=== PATIENT | male | born 2000 | race African-American/Black ===

== ENCOUNTER 2022-08-25 09:59 | Emergency (ER) | payer OTHER, SELFPAY ==
[2022-08-25 10:02] VITALS: BP 143/70; PULSE 78; RESP 16; TEMP 36.6; O2SAT 98; BMI 25.2
--- NOTE | 2022-08-25 10:20 | ED.VIS.GI ---
HPI HPI - GI History of Present Illness Chief Complaint: Abd Pain Informant: patient and friend Abdominal Pain/Flank Pain Onset: Days Context: Gradual Onset Timing: Intermittent Quality: Cramping Location: Diffuse Current Severity: Gone Maximum Severity: Mild Worsened by: Nothing Relieved by: Nothing Nausea/Vomiting/Emesis GI Symptom: Negative for Nausea or Vomiting Diarrhea/Melena/Hematochezia GI Symptom: Negative for Diarrhea, Melena or Hematochezia Associated Symptoms Associated Symptoms: Negative for Dysuria, Frequency, Hematuria or Urgency Narrative Narrative: Healthy 21-year-old male from [facility], 1927[facility]. Has had intermittent abdominal pain primarily upper for the last 5 days. Saw an urgent care setting in emergency department for further evaluation. Subjectively he thinks he has felt warm but has not documented a temperature. He is afebrile here. He has never had any abdominal surgeries. No recent abdominal injury or trauma. No trouble urinating. No dysuria. No trouble having bowel movements. No weight change. He recently started erythromycin yesterday for URI but his symptoms started before he started the antibiotic. Prior similar symptoms: No Recent Illness/Hospitalization: No PFSH PFSH Medical History no medical history no medical history Allergy/AdvReac Type Severity Reaction Status Date / Time No Known Allergies Allergy Verified 08/25/22 10:00 Family History no significant family his Surgical History no surgical history no surgical history Social History Smoking Status: Never smoker ROS ROS ED ROS Narrative Abdominal discomfort. No dysuria. No changes in bowel movements. No weight change. Review of Systems ROS Unobtainable: due to encephalopathy Constitutional Constitutional ED: Reports fever(s) and subjective; Denies chills ENT ENT ED: Denies ear pain Cardiovascular Cardiovascular: Denies chest pain Respiratory/Chest Respiratory/Chest: Denies cough Gastrointestinal Gastrointestinal: Reports abdominal pain; Denies constipation, diarrhea, melena, nausea or vomiting Genitourinary Genitourinary ED: Denies dysuria or hematuria Musculoskeletal Musculoskeletal: Denies arthralgias Integumentary Denies abscess Neurologic Neurologic: Denies headache(s) Psychiatric Psychiatric: Denies anxiety Endocrine Endocrinology: Denies polydipsia Hematologic/Lymphatic Hematologic/Lymphatic: Denies easy bleeding Allergic/Immunologic Allergic/Immunologic ED: Denies mouth swelling or tongue swelling EXAM Physical Exam Narrative Exam Narrative: 21-year-old male clinically looks well. Vital signs are stable afebrile. H EENT exam is unremarkable. Neck nontender no lymphadenopathy. Lungs are clear to auscultation bilaterally. Heart is regular rhythm no murmur. Chest wall nontender. Abdomen is soft, nontender, nondistended, normal bowel sounds, no peritoneal signs. Rate is no reproducible tenderness at all. There is no right upper or right lower quadrant pain. There is no hernia or mass. No external tenderness. No signs of trauma. Moving all 4 extremities. Back nontender. Neurologically is awake and alert with no focal motor deficits. Const Vital Signs: 08/25/22 10:02 08/25/22 13:31 Temperature 97.8 F Temperature Source Temporal Pulse Rate 78 94 Respiratory Rate 16 16 Blood Pressure 143/70 H 115/69 Blood Pressure Mean 94 84 Pulse Ox 98 99 Oxygen Delivery Method Room Air Room Air Positive well nourished and well developed; Negative for obese, cachectic, contractures or unkempt General Appearance ED: well developed and NAD; Negative for unkempt, cachectic, contractures or pallor Nutritional Appearance: Negative for cachectic or obese HEENT Reports moist mucous membranes normocephalic and atraumatic; Negative for trauma or tenderness Eyes PERRL and EOMs intact bilaterally General Eye ED: Negative for pale conjunctiva or scleral icterus Neck no lymphadenopathy, supple and no JVD General: Negative for tenderness Carotids: Negative for other Lymph Lymphatic: Negative for other Resp normal respiratory effort and clear to auscultation bilaterally Effort and Inspection: Negative for respiratory distress Auscultation: Negative for rales, rhonchi or wheezes Cardio regular rate, regular rhythm, S1 normal heart sound, S2 normal heart sound and no murmurs Rate: Negative for bradycardia or tachycardic Rhythm: Negative for abnormal rhythm GI non-tender, non-distended and no masses Inspection: Negative for abdominal distention Auscultation: normoactive bowel sounds Palpation: soft; Negative for tender, guarding, rigid, hepatomegaly, splenomegaly, hernia, mass or pulsatile mass Back/Spine no CVA tenderness General Back: Negative for CVA tenderness Cervical Spine: Negative for cervical spine tenderness Thoracic Spine / Upper Back: Negative for thoracic spinal tenderness Lumbar Spine / Lower Back: Negative for lumbar spinal tenderness Coccyx: Negative for other Extremity full ROM General Extremety ED: Negative for edema or tenderness General Extremity: Negative for edema Neuro CN's II-XII intact bilaterally and moves all extremities Sensorium / Orientation: alert, oriented to person, oriented to place and oriented to time; Negative for orientation impaired, confused, lethargic or stuporous Motor Exam: strength 5/5 throughout Psych mental status grossly normal and thought process normal Appearance: Negative for unkempt Attitude: No agitated Mood & Affect: Negative for depressed, anxious or tearful Skin No no wounds General Skin Exam: Negative for jaundice or pallor Lesions: no lesions Rashes: no rashes Trauma: Negative for abrasion Nails: Negative for discolored MDM MDM MDM Narrative Medical decision making narrative: 21-year-old healthy male from [facility], 1927[address] with abdominal pain the last 5 days but currently is pain-free. Screening labs will be obtained. At this time he does not need an ultrasound or an abdominal CAT scan. I will evaluate his lab results to determine further evaluation and/or treatment. He has a very benign nontender abdominal exam currently. Multiple repeat exams the patient is doing well. His abdomen is benign. I went over with him his ultrasound and lab results also the woman from the [facility]. I spoke to Dr. Black, the it web development consultant, he will follow patient up. He is going to order additional labs. He will ensure close follow-up with the patient in his office. History & Record Review Discussion w/independent historian: Patient and Friend Lab Data Attestation: I reviewed the patient's lab results. Lab results narrative: CBC normal. White count of 8. H&H is 16 and 49. Platelets were too numerous to count. Electrolytes unremarkable gap of 5. Normal BUN and creatinine 11 and 1. Liver enzymes are elevated total bilirubin, AST, ALT are up. Lipase is 639. I will obtain abdominal ultrasound of the right upper quadrant. Gallbladder ultrasound was unremarkable. Labs: Laboratory Results - last 24 hr 08/25/22 08/25/22 10:45 10:45 WBC 8.6 RBC 5.60 Hgb 16.5 Hct 49.2 MCV 87.9 MCH 29.5 MCHC 33.5 RDW Std Deviation 44.6 H RDW Coeff of Nae 13.8 Plt Count TNP MPV 9.8 Immature Gran % (Auto) 0.200 Neut % (Auto) 76.9 H Lymph % (Auto) 8.6 L [place] % (Auto) 11.4 H Eos % (Auto) 2.4 Baso % (Auto) 0.5 Absolute Neuts (auto) 6.6 Absolute Lymphs (auto) 0.74 L Nucleated RBC % 0 Platelet Estimate ADEQUATE Sodium 137 Potassium 4.0 Chloride 103 Carbon Dioxide 29.0 Anion Gap 5 BUN 11 Creatinine 1.01 Estim Creat Clear Calc 124.26 Est GFR (MDRD) Af Amer 120 Est GFR (MDRD) Non-Af 99 BUN/Creatinine Ratio 10.9 Glucose 81 Calcium 9.5 Total Bilirubin 5.00 H AST 134 H ALT 354 H Alkaline Phosphatase 191 H Total Protein 9.2 H Albumin 4.0 Globulin 5.2 H Albumin/Globulin Ratio 0.8 L Lipase 69 Radiography Diagnostic Testing: Clinical Impression(s) from Imaging Studies Gallbladder Ultrasound 08/25/22 12:08 IMPRESSION: Normal right upper quadrant ultrasound examination. Electronically Signed: Faraz Kim MD at 14:30 EDT , Discharge Plan Triage Chief Complaint: Abd Pain ED Provider: Elvis Mendez Dx/Rx/DC Orders Clinical Impression: Hepatitis Instructions: ED Hepatitis Cause Unknown ... Primary Care Provider: Care Physician,No Primary Referrals: Trae Black DO [Med Staff - Active Staff] - As soon as possible Care Physician,No Primary [Primary Care Provider] - Activity Restrictions/Additional Instructions: Your liver enzymes are elevated this may be caused from a form of hepatitis or another virus. Your other labs and ultrasound were normal. I spoke to Dr. Black, the it web development consultant, Call his office today or tomorrow. Tell them you were seen in the ER today. I spoke with Dr. Black. And he will get you into his office within the next week. Fluids and rest. Tylenol for any fever. Disposition Disposition: Home, Self Care
[2022-08-25 11:00] LABS: Absolute Lymphocyte Count 0.74 X10^3/uL (0.83-4.51); Absolute Neutrophil Count 6.6 X10^3/uL (2.0-7.7); Basophil# 0.04 X10^3/uL; Basophil% 0.5 % (0-1); Eosinophil# 0.21 X10^3/uL; Eosinophils% 2.4 % (0-5); Hematocrit 49.2 % (40-54); Hemoglobin 16.5 g/dL (13.0-16.5); Lymphocyte # 0.74 X10^3/ul (0.83-4.51); Lymphocyte % 8.6 % (19-41); Mean Corp Hgb Conc 33.5 g/dL (32-36); Mean Corpuscular Hgb 29.5 pg (27.0-32.0); Mean Corpuscular Volume 87.9 fL (80-94); Mean Platelet Vol. 9.8 fl (6.2-12.0); Monocyte# 0.98 X10^3/uL; Monocyte% 11.4 % (0-10); NRBC Flagged by Analyzer 0 % (0-5); Neutrophil # 6.61 X10^3/uL (2.7-7.7); Neutrophil % 76.9 % (47-70); POSITIVE COUNT YES; RBC Distribution Width CV 13.8 % (11.6-14.6); RBC Distribution Width SD 44.6 fl (35.1-43.9); White Blood Count 8.6 K/mm3 (4.4-11.0)
[2022-08-25 11:12] LABS: ALB/GLOB Ratio 0.8 RATIO (0.9-2.4); AST(SGOT) 134 U/L (15-37); Alanine Aminotransfer ALT/SGPT 354 U/L (16-61); Alkaline Phosphatase 191 U/L (45-117); Anion Gap 5 (5-15); BUN 11 mg/dL (7-18); BUN/Creat Ratio 10.9 RATIO (10-20); Calcium,Total 9.5 mg/dL (8.5-10.1); Chloride 103 mmol/L (98-107); Creatinine, Serum 1.01 mg/dL (0.70-1.30); EST Glomerular Filtration Rate 99 mL/min (>60); Est Glom Filt Rate - Afr Amer 120 mL/min (>60); Estimated Creatinine Clearance 124.26 ml/min; Globulin 5.2 g/dL (2.2-4.2); Glucose 81 mg/dL (74-106); Lipase 69 U/L (13-75); Protein, Total 9.2 g/dL (6.4-8.2); Sodium Level 137 mmol/L (136-145)
[2022-08-25 11:24] LABS: Differential Indicated SCAN CRITERIA MET
[2022-08-25 11:25] LABS: Platelet Estimate ADEQUATE (ADEQ)
--- NOTE | 2022-08-25 12:08 | US_ITS ---
STUDY: ABDOMINAL ULTRASOUND - RIGHT UPPER QUADRANT REASON FOR VISIT: Male, 21 years old elevated liver enzymes TECHNIQUE: Ultrasound evaluation of the right upper quadrant was performed with real-time and static stanford-scale imaging. TECHNICAL QUALITY: Adequate. COMPARISON: None. FINDINGS: Liver: The liver measures 15.3 cm. There is normal echogenicity of the liver. The bile ducts are within normal limits. There is hepatic color flow. The direction of portal flow is hepatopetal. There is no demonstrated mass lesion. Gallbladder: Normal distended gallbladder. The gallbladder wall measures 2.1 mm. There is a negative sonographic Mendez''s sign. There is no pericholecystic fluid. There are no gallstones. Common Bile Duct (C.B.D.): The common bile duct measures 3.6 mm. Pancreas: Limited visualization of pancreas due to overlying bowel gas. Right Kidney: Normal size of the right kidney. The right kidney measures 10.7 cm x 7.1 cm x 6.6 cm. Normal renal cortex. The right cortex measures 1.2 cm. There is no demonstrated renal mass or cyst. There is no right hydronephrosis. US/Gallbladder IMPRESSION: Normal right upper quadrant ultrasound examination. Electronically Signed: Faraz Kim MD at 14:30 EDT ,
[2022-08-25] MEDS: Ketorolac 30 MG/ML Syringe IV (12:26)
[2022-08-25] MEDS: Ondansetron 4 MG/2 ML Vial IV (12:26)
[2022-08-25 13:31] VITALS: BP 115/69; PULSE 94; RESP 16; O2SAT 99
[2022-08-25 15:18] VITALS: PULSE 74; RESP 15; O2SAT 97
[2022-08-25 16:09] LABS: Erythrocyte Sedimentation Rate 28 mm/hr (0-20)
[2022-08-25 16:11] LABS: Ferritin 115 ng/mL (26-388); LDH 145 U/L (87-241)
[2022-08-25 16:48] LABS: Internal QC Validated? YES +Cl - CLEAR BKGD; Monotest Negative (Negative)
[2022-08-26 05:07] LABS: HEPATITIS B SURFACE AG Negative (Negative); Hep C Antibodies Non Reactive (Non Reactive); Hepatitis A IgM Antibody Negative (Negative); Hepatitis B Core AB IgM Negative (Negative)
[2022-08-27 15:08] LABS: Cytoplasmic Ab (C-ANCA) 1:20 titer (Neg:<1:20); EBV Acute VCA IgM < 36.0 U/mL (0.0-35.9); EBV-VCA IgG > 600.0 U/mL (0.0-17.9); Perinuclear Ab (P-ANCA) <1:20 titer (Neg:<1:20)
[2022-08-27 16:09] LABS: Anti-Centromere B Ab <0.2 AI (0.0-0.9); Anti-Chromatin <0.2 AI (0.0-0.9); Anti-Jo <0.2 AI (0.0-0.9); Anti-Scleroderma-70 AB <0.2 AI (0.0-0.9); Anti-dsDNA Ab 1 IU/mL (0-9); RNP Ab <0.2 AI (0.0-0.9); SJOGREN'S Anti-SS-A test < 0.2 AI (0.0-0.9); SJOGREN'S Anti-SS-B test < 0.2 AI (0.0-0.9); Smith Ab <0.2 AI (0.0-0.9)
[2022-08-28 21:07] LABS: Albumin 3.2 g/dL (2.9-4.4); Alpha-1-Globulins 0.3 g/dL (0.0-0.4); Alpha-2-Globulins 0.9 g/dL (0.4-1.0); Anti-Smooth Muscle ABS 15 Units (0-19); Ceruloplasmin 34.1 mg/dL (16.0-31.0); Copper, Serum or Plasma 161 ug/dL (63-121); Gamma Globulin 1.6 g/dL (0.4-1.8); Immunoglobulin A 147 mg/dL (90-386); Immunoglobulin G 1578 mg/dL (603-1613); Immunoglobulin M 91 mg/dL (20-172); PROEL- TOTAL PROTEIN 6.9 g/dL (6.0-8.5)
== END 2022-08-25 15:47 | disposition home or self-care (01) ==
PROVIDERS: Internal Medicine Gastroenterology; Emergency Provider Emergency Medicine; Visit Provider Emergency Medicine
DX: R10.10 Upper abdominal pain, unspecified (principal); K75.9 Inflammatory liver disease, unspecified
CPT/HCPCS: 76705; 80053; 80074; 82390; 82525; 82728; 82784; 83516; 83615; 83690; 84165; 85025; 85652; 86140; 86225; 86235; 86256; 86308; 86334; 86664; 86665; 99283; A4216; J2405

== ENCOUNTER 2022-08-26 13:59 | Emergency (ER) | payer OTHER, SELFPAY ==
[2022-08-26 14:00] VITALS: BP 123/72; PULSE 95; RESP 16; TEMP 37.3; O2SAT 100; BMI 25.2
--- NOTE | 2022-08-26 14:04 | CT_ITS ---
STUDY: CT ABDOMEN AND PELVIS WITH CONTRAST REASON FOR EXAM: Male, 21 years old. Abd pain, elevated liver enzymes RADIATION DOSAGE (If Supplied By Facility): CTDIvol = ( 9.81 ) mGy, DLP = ( 491.23 ) mGycm TECHNIQUE: Transaxial images were obtained from the dome of the diaphragm to the symphysis pubis without oral contrast. IV 100mL Isovue-300 was administered. Sagittal and coronal images were reconstructed. Individualized dose optimization techniques were used for this CT. COMPARISON: None. FINDINGS: The visualized lung bases are unremarkable. The visualized portions of the heart are within normal limits. Normal liver. Normal gallbladder and extrahepatic biliary system. Normal spleen. Normal pancreas. Normal bilateral adrenal glands. Normal right kidney. Normal left kidney. Normal visualized stomach. Normal small intestine. Moderate amount of fecal material is seen in the colon. The appendix is visualized and appears normal. Normal abdominal aorta. Normal inferior vena cava. Normal retroperitoneum. Normal urinary bladder. Small benign-appearing bilateral inguinal lymph nodes. Normal osseous structures. CT/Abdomen/Pelvis W IV Cont ONLY IMPRESSION: Normal enhanced CT of the abdomen and pelvis. Electronically Signed: Faraz Kim MD at 14:45 EDT ,
[2022-08-26 15:56] LABS: QC Malaria Lot#/Exp Date RECORD LOT#/EXP DATE
[2022-08-26 15:59] VITALS: RESP 18
[2022-08-26 16:15] LABS: Absolute Lymphocyte Count 0.78 X10^3/uL (0.83-4.51); Absolute Neutrophil Count 7.2 X10^3/uL (2.0-7.7); Basophil# 0.04 X10^3/uL; Basophil% 0.4 % (0-1); Eosinophil# 0.19 X10^3/uL; Eosinophils% 2.1 % (0-5); Hematocrit 47.6 % (40-54); Hemoglobin 15.9 g/dL (13.0-16.5); Lymphocyte # 0.78 X10^3/ul (0.83-4.51); Lymphocyte % 8.6 % (19-41); Mean Corp Hgb Conc 33.4 g/dL (32-36); Mean Corpuscular Hgb 29.5 pg (27.0-32.0); Mean Corpuscular Volume 88.3 fL (80-94); Mean Platelet Vol. 9.8 fl (6.2-12.0); Monocyte# 0.93 X10^3/uL; Monocyte% 10.2 % (0-10); NRBC Flagged by Analyzer 0 % (0-5); Neutrophil # 7.15 X10^3/uL (2.7-7.7); Neutrophil % 78.5 % (47-70); Platelet Count 286 K/mm3 (150-450); RBC Distribution Width CV 13.7 % (11.6-14.6); RBC Distribution Width SD 44.7 fl (35.1-43.9); Red Blood Count 5.39 M/mm3 (4.6-6.2); White Blood Count 9.1 K/mm3 (4.4-11.0)
--- NOTE | 2022-08-26 16:22 | ED.VIS.GI ---
HPI HPI - GI History of Present Illness Chief Complaint: Abd Pain Informant: patient Abdominal Pain/Flank Pain Onset: Days (5) Narrative Narrative: Patient has been having abdominal pain for the last 5 days he was seen here yesterday, diagnosed with hepatitis of unknown etiology, referred to GI but they cannot get him in for about 3 weeks, labs were sent that are send out labs, patient still having abdominal pain and returns for reevaluation. Denies any new symptoms. Was having high fevers and chills several days ago but those have not recurred. He is here as an exchange student from [facility], and he started having the symptoms the day before he left. He is healthy otherwise. PFSH PFSH Medical History no medical history no medical history Home Medications hydroxychloroquine 200 mg tablet See Rx Instructions .Route .COMPLEX #6 tabs 08/26/22 [Rx Last Taken Unknown] oxycodone 5 mg capsule 5 mg PO Q6H PRN pain 3 days #10 caps 08/26/22 [Rx Last Taken Unknown] Allergy/AdvReac Type Severity Reaction Status Date / Time No Known Allergies Allergy Verified 08/26/22 13:59 Social History Smoking Status: Never smoker ROS ROS ED Constitutional Constitutional ED: Reports fatigue and fever(s); Denies chills Eyes Eyes: Denies change in vision or diplopia ENT ENT ED: Denies rhinorrhea or sore throat Cardiovascular Cardiovascular: Denies chest pain or palpitations Respiratory/Chest Respiratory/Chest: Denies cough or dyspnea Gastrointestinal Gastrointestinal: Reports abdominal pain; Denies diarrhea, nausea or vomiting Genitourinary Genitourinary ED: Denies dysuria or hematuria Musculoskeletal Musculoskeletal: Denies back pain or neck pain Integumentary Denies abscess or rash Neurologic Neurologic: Denies headache(s), paresthesias or weakness Psychiatric Psychiatric: Denies anxiety or suicidal thoughts EXAM Physical Exam Const Vital Signs: 08/26/22 14:00 Temperature 99.1 F Temperature Source Temporal Pulse Rate 95 Respiratory Rate 16 Blood Pressure 123/72 H Blood Pressure Mean 89 Pulse Ox 100 Oxygen Delivery Method Room Air Positive well nourished and well developed Constitutional Narrative: Well-appearing in no distress General Appearance ED: well developed and NAD HEENT Reports moist mucous membranes normocephalic and atraumatic Eyes PERRL and EOMs intact bilaterally General Eye ED: Yes scleral icterus Neck full ROM and supple Resp normal respiratory effort and clear to auscultation bilaterally Cardio regular rate, regular rhythm and no murmurs GI non-distended GI Narrative: Mild right upper quadrant epigastric tenderness no guarding or rebound otherwise benign abdomen Auscultation: normoactive bowel sounds Palpation: soft Back/Spine no CVA tenderness General Back: other FROM Extremity normal to inspection General Extremety ED: Negative for edema, pulses abnormal or tenderness General Extremity: Negative for edema or pulses abnormal Neuro oriented x3, CN's II-XII intact bilaterally and no sensory deficits noted Sensorium / Orientation: awake and alert Motor Exam: strength 5/5 throughout Skin no rashes or lesions noted and no wounds MDM MDM MDM Narrative Medical decision making narrative: Patient is mildly tender in his right upper quadrant but has a fairly benign abdomen. Was requesting CT scan which I think is reasonable, CT was obtained and the results are negative I reviewed the images as well and they are unremarkable. I agree with the interpretation. In discussing with the patient, my suspicion is that he could have malaria. Malaria can also cause hepatitis. He states malaria is very common where he is from. The drug the use is not available here, but hydroxychloroquine is. I had a malaria smear obtained, however the pathologist is gone for the day and the lab is not able to get the pathologist come back and to read the smear. Therefore I think the best course of action is to treat him empirically with hydroxychloroquine, he was given a loading dose here as well as a prescription for the rest of the pills which our pharmacy can fill for him, as well as some oxycodone which I gave him here for the pain. Unfortunately, the medical clinic at the [facility] where he is an exchange student is closed for the summer, so I am making efforts so that the lab returns and the results of the smear to the emergency department if they become available tomorrow so that we may contact him to let him know one way or the other. History & Record Review Additional record(s) reviewed:: Prior ED visit and Prior labs Lab Data Attestation: I reviewed the patient's lab results. Labs: Laboratory Results - last 24 hr 08/26/22 08/26/22 15:50 15:50 WBC Cancelled 9.1 Corrected WBC Cancelled RBC Cancelled 5.39 Hgb Cancelled 15.9 Hct Cancelled 47.6 MCV Cancelled 88.3 MCH Cancelled 29.5 MCHC Cancelled 33.4 RDW Std Deviation Cancelled 44.7 H RDW Coeff of Nae Cancelled 13.7 Plt Count Cancelled 286 MPV Cancelled 9.8 Immature Gran % (Auto) Cancelled 0.200 Neut % (Auto) Cancelled 78.5 H Lymph % (Auto) Cancelled 8.6 L Young % (Auto) Cancelled 10.2 H Eos % (Auto) Cancelled 2.1 Baso % (Auto) Cancelled 0.4 Neut # (Auto) Cancelled Immature Gran # (Auto) Cancelled Absolute Neuts (auto) Cancelled 7.2 Absolute Lymphs (auto) Cancelled 0.78 L Absolute Monos (auto) Cancelled Total Counted Cancelled Neutrophils % (Manual) Cancelled Band Neutrophils % Cancelled Lymphocytes % (Manual) Cancelled Monocytes % (Manual) Cancelled Eosinophils % (Manual) Cancelled Basophils % (Manual) Cancelled Metamyelocytes % Cancelled Myelocytes % Cancelled Promyelocytes % Cancelled Blast Cells % Cancelled Plasma Cell % (Manual) Cancelled Other Cells % Cancelled Nucleated RBC % Cancelled 0 Lymphocytes # Cancelled Basophils # Cancelled Nucleated RBCs/100 WBC Cancelled Differential Comment Cancelled Diff Path Review Cancelled Hypersegmented Neuts Cancelled Atypical Lymphocytes Cancelled Reactive Lymphocytes Cancelled Smudge Cells Cancelled Eosinophilia # Cancelled Toxic Granulation Cancelled Toxic Vacuolation Cancelled Dohle Bodies Cancelled Mariano Rods Cancelled Platelet Estimate Cancelled Plt Morphology Comment Cancelled RBC Morphology Cancelled Polychromasia Cancelled Hypochromasia Cancelled Poikilocytosis Cancelled Basophilic Stippling Cancelled Anisocytosis Cancelled Microcytosis Cancelled Macrocytosis Cancelled Spherocytes Cancelled Sickle Cells Cancelled Target Cells Cancelled Tear Drop Cells Cancelled Ovalocytes Cancelled Stomatocytes Cancelled [place] Bodies Cancelled [place] Cells Cancelled Bite Cells Cancelled Crenated Cell Cancelled Acanthocytes (Spur) Cancelled Rouleaux Cancelled Schistocytes Cancelled ESR Cancelled 15 Radiography Diagnostic Testing: Clinical Impression(s) from Imaging Studies Abdomen/Pelvis CT 08/26/22 14:04 IMPRESSION: Normal enhanced CT of the abdomen and pelvis. Electronically Signed: Faraz Kim MD at 14:45 EDT , My interpretation of the CT agrees with that of the radiologist. Management Discussion w/another healthcare provider: [employer] (KARLEY Black) Discharge Plan Triage Chief Complaint: Abd Pain ED Provider: Efren Curran Dx/Rx/DC Orders Clinical Impression: Hepatitis, Malaria screening Prescriptions: New hydroxychloroquine 200 mg tablet See Rx Instructions .ROUTE .COMPLEX Qty: 6 0RF Rx Instructions: 2 tabs po at 11pm, then tomorrow 08/27 at 5pm, then the next day on 08/28 at 5pm oxycodone 5 mg capsule 5 mg PO Q6H PRN (Reason: pain) 3 Days Qty: 10 0RF Primary Care Provider: Care Physician,No Primary Referrals: Trae Black DO [Med Staff - Active Staff] - (when able) [facility] [Group of Physicians] - 3-5 Days Disposition Disposition: Home, Self Care
[2022-08-26 16:38] LABS: Erythrocyte Sedimentation Rate 15 mm/hr (0-20)
[2022-08-26 16:55] LABS: ALB/GLOB Ratio 0.8 RATIO (0.9-2.4); AST(SGOT) 81 U/L (15-37); Alanine Aminotransfer ALT/SGPT 227 U/L (16-61); Albumin, Serum 3.2 g/dL (3.2-5.0); Alkaline Phosphatase 172 U/L (45-117); Anion Gap 6 (5-15); BUN 9 mg/dL (7-18); BUN/Creat Ratio 8.7 RATIO (10-20); Calcium,Total 9.2 mg/dL (8.5-10.1); Chloride 103 mmol/L (98-107); Creatinine, Serum 1.03 mg/dL (0.70-1.30); EST Glomerular Filtration Rate 97 mL/min (>60); Est Glom Filt Rate - Afr Amer 118 mL/min (>60); Estimated Creatinine Clearance 121.84 ml/min; Globulin 4.1 g/dL (2.2-4.2); Glucose 94 mg/dL (74-106); Potassium 3.7 mmol/L (3.5-5.1); Protein, Total 7.3 g/dL (6.4-8.2); Sodium Level 135 mmol/L (136-145)
[2022-08-26] MEDS: oxyCODONE 5 MG Tablet PO (17:08)
[2022-08-26] MEDS: Hydroxychloroquine 200 MG Tablet 800 MG PO (17:08)
[2022-08-26] MEDS: proMETHazine 25 MG Tablet PO (17:08)
--- NOTE | 2022-08-26 17:20 | ED.RN ---
PT IS DOING SUMMER PROGRAM AT [employer] AND DOES NOT HAVE ACCESS TO PHONE. REQUESTING TO CALL FRIEND DANIEL WITH ANY POSITIVE RESULTS.
[2022-08-27 09:48] LABS: Malaria Blood Parasite Interp Negative (Negative); Malaria QC Review REV
--- NOTE | 2022-08-27 19:37 | ED.RN ---
1230 PM 08/27/2022: THIS RN ATTEMPTED TO CALL PT WITH NEGATIVE MALARIA RESULTS. PER DR. CHEUNG REVIEW OK TO STOP TAKING MALARIA MEDICATIONS. NO ANSWER, THIS RN LEFT A VOICE MESSAGE AT THE LISTED PHONE NUMBER WITH RETURN CONTACT INFORMATION.
--- NOTE | 2022-08-30 10:11 | ED.RN ---
PT RETURNS PHONE CALL VERIFIES INFORMATION. PT INFORMED OF NEGATIVE MALARIA RESULTS. INSTRUCTED TO D/C TX FOR MALARIA. PT TO FOLLOW UP WITH GI AND PCP. PT VERBALIZES UNDERSTANDING.
== END 2022-08-26 17:23 | disposition home or self-care (01) ==
PROVIDERS: Internal Medicine Gastroenterology; Emergency Provider Emergency Medicine; Visit Provider Emergency Medicine
DX: K75.9 Inflammatory liver disease, unspecified (principal); B54 Unspecified malaria
CPT/HCPCS: 74177; 80053; 85025; 85652; 86140; 87207; 99284; Q9967; A4216; J2405

== ENCOUNTER → 2022-09-13 | Outpatient (CLI) | payer OTHER, SELFPAY ==
[2022-09-13 14:28] LABS: ALB/GLOB Ratio 0.7 RATIO (0.9-2.4); AST(SGOT) 57 U/L (15-37); Alanine Aminotransfer ALT/SGPT 166 U/L (16-61); Albumin, Serum 3.6 g/dL (3.2-5.0); Alkaline Phosphatase 355 U/L (45-117); Anion Gap 5 (5-15); BUN 12 mg/dL (7-18); BUN/Creat Ratio 13.7 RATIO (10-20); Calcium,Total 9.9 mg/dL (8.5-10.1); Chloride 104 mmol/L (98-107); Creatinine, Serum 0.88 mg/dL (0.70-1.30); EST Glomerular Filtration Rate 117 mL/min (>60); Est Glom Filt Rate - Afr Amer 141 mL/min (>60); Globulin 5.1 g/dL (2.2-4.2); Glucose 80 mg/dL (74-106); Potassium 4.2 mmol/L (3.5-5.1); Protein, Total 8.7 g/dL (6.4-8.2); Sodium Level 137 mmol/L (136-145)
== END | disposition home or self-care (01) ==
PROVIDERS: Referring Provider Internal Medicine Gastroenterology; Visit Provider Internal Medicine Gastroenterology
DX: R79.89 Other specified abnormal findings of blood chemistry (principal)
CPT/HCPCS: 36415; 80053